=== PATIENT | male | born 1945 | race Caucasian/White ===

== ENCOUNTER 2019-08-12 07:20 | Outpatient (CLI) | payer MEDICARE, SELFPAY ==
--- NOTE | ~2019-08-12 | CT_ITS ---
EXAMINATION: CT abdomen pelvis wo/w con EXAM DATE: 08/12/2019 08:44 INDICATION: Microscopic hematuria. TECHNIQUE: Spiral CT of the abdomen and pelvis was performed without contrast. The patient was then injected with small bolus intravenous Omnipaque 350, followed by delay of approximately 10 minutes to allow collecting system to opacify. A post contrast scan abdomen and pelvis was performed during inj ection of remaining contrast. A total of 130 cc intravenous contrast was administered. The dose-aundrea th product (DLP) for this examination was 3090.54 mGy-cm. The exposure was tailored according to pat ient size (auto mA exposure control), and iterative reconstruction (ASIR) was used as additional dose reduction technique. There is no prior study for comparison. FINDINGS: There is no hydronephrosis or nephrolithiasis. There are multiple renal lesions bilaterall y consistent with cysts and hemorrhagic cysts, largest in the superior pole of the right kidney measu ring 11 cm. The kidneys enhance symmetrically. There are no suspicious renal lesions. The calyces and opacified portions of ureters are unremarkable, without filling defects or focal suspicious stric tures. The bladder is unremarkable. The prostate is unremarkable. The largest liver cyst is in the right liver dome, measures 1.8 cm. The spleen, pancreas, and adrena l glands are unremarkable. Gallbladder is unremarkable. No biliary obstruction. There is no retrop eritoneal or pelvic lymphadenopathy. There is mild to moderate scattered arteriosclerotic disease. The appendix is normal. There is small sliding gastroesophageal hiatal hernia. There is expected am ount of colonic stool. There is mild descending colonic colonic diverticulosis. There is no adjacent inflammatory change to suggest diverticulitis. No free intraperitoneal gas. The heart is normal i n size. There are no pericardial or pleural effusions. The lung bases are unremarkable. There are no osteoblastic or osteolytic lesions identified. IMPRESSION: 1. No suspicious genitourinary findings. 2. Liver, kidney cysts. 3. Colonic diverticulosis. Reviewed, dictated and finalized at location B. ET TECHNICIAN
[2019-08-12 08:16] LABS: Blood Urea Nitrogen 12 mg/dL (8-26); Estimated Glomerular Filt Rate > 60
== END 2019-08-12 07:21 | disposition home or self-care (01) ==
PROVIDERS: PCP Internal Medicine; Visit Provider Urology
DX: R31.29 Other microscopic hematuria (principal); K76.89 Other specified diseases of liver; N28.1 Cyst of kidney, acquired; K57.90 Diverticulosis of intestine, part unspecified, without perforation or abscess without bleeding
CPT/HCPCS: 74178; Q9967

== ENCOUNTER 2019-12-15 07:36 | Outpatient (CLI) | payer MEDICARE, SELFPAY ==
[2019-12-15 07:55] LABS: Appearance Urine Clear (Clear); Basophils Absolute Auto 0.02 K/mm3 (0.00-0.10); Basophils Percent Auto 0.3 % (0.0-1.0); Bilirubin Urine Negative (Negative); Color Urine Yellow (Yellow); Eosinophils Absolute Auto 0.28 K/mm3 (0.02-0.50); Eosinophils Percent Auto 4.3 % (1.0-6.0); Glucose Urine UA Negative (Negative); Hemoglobin 14.1 g/dL (12.4-15.3); Immature Granulocyte Absolute 0.03 K/mm3 (0.00-0.00); Immature Granulocyte Percent A 0.5 % (0.0-0.0); Ketones Urine Negative (Negative); Leukocyte Esterase Ur Negative (Negative); Lymphocytes Absolute Auto 1.35 K/mm3 (1.10-4.50); Lymphocytes Percent Auto 20.8 % (18.0-42.0); Mean Corpuscular HGB Conc 34.4 g/dL (32.0-36.0); Mean Corpuscular Hemoglobin 31.3 pg (27.0-31.0); Mean Corpuscular Volume 90.9 fL (78.0-102.0); Mean Platelet Volume 10.7 fl (8.7-11.0); Monocytes Absolute Auto 0.55 K/mm3 (0.10-0.90); Monocytes Percent Auto 8.5 % (2.0-11.0); Neutrophils Absolute Auto 4.3 K/mm3 (1.7-7.2); Neutrophils Percent Auto 65.6 % (50.0-70.0); Nitrate Urine Negative (Negative); Platelet Count Result 210 K/mm3 (150-420); Protein Urine Negative (Negative); Red Blood Count 4.51 M/mm3 (4.70-6.10); Red Cell Distribution Width 11.3 % (11.6-14.4); Specific Grav Ur 1.015 (1.010-1.020); Urobilinogen Urine 0.2 mg/dL (0.2-1.0); White Blood Count 6.5 K/mm3 (4.8-10.8)
[2019-12-15 08:00] LABS: Add Urine Microscopic? YES; Bacteria Urine None seen /hpf; Blood Urine Trace-Intact (Negative); RBC Urine 0-2 /hpf (0-2); WBC Urine 0-3 /hpf (0-3)
[2019-12-15 09:04] LABS: Alanine Aminotransferase 24 U/L (16-63); Albumin Level 3.7 g/dL (3.4-5.0); Alkaline Phosphatase 93 U/L (46-116); Anion Gap 11.3 mmol/L (7-16); Aspartate Amino Transferase 19 U/L (15-37); Bilirubin,Total 0.3 mg/dL (0.00-1.00); Blood Urea Nitrogen 20 mg/dL (7-18); Calcium 8.7 mg/dL (8.5-10.1); Carbon Dioxide 31 mmol/L (21-32); Chloride 99 mmol/L (98-108); Cholesterol 174 mg/dL (0-200); Creatine Kinase 155 U/L (39-308); Estimated Glomerular Filt Rate > 60; Ferritin 220 ng/mL (26-388); Glucose 100 mg/dL (70-99); HDL Direct 43 mg/dL (40-60); Iron 121 ug/dL (65-175); LDL Cholesterol Calculated 118 mg/dL (<130); Osmolality Calculated 286 mOsm/kg (285-295); Percent Iron Saturation 53 % (12-57); Potassium 4.3 mmol/L (3.5-5.1); Sodium 137 mmol/L (136-145); Total Protein 6.3 g/dL (6.4-8.2); Triglycerides 67 mg/dL (0-150)
== END 2019-12-15 07:37 | disposition home or self-care (01) ==
LOC: CHSLAB 07:38
PROVIDERS: PCP Internal Medicine; Visit Provider Internal Medicine
DX: E78.2 Mixed hyperlipidemia (principal); E83.110 Hereditary hemochromatosis; I10 Essential (primary) hypertension
CPT/HCPCS: 36415; 80053; 80061; 81001; 82550; 82728; 83540; 83550; 85025

== ENCOUNTER 2020-07-05 07:36 | Outpatient (CLI) | payer MEDICARE, SELFPAY ==
[2020-07-05 07:51] LABS: Basophils Absolute Auto 0.02 K/mm3 (0.00-0.10); Basophils Percent Auto 0.3 % (0.0-1.0); Eosinophils Absolute Auto 0.26 K/mm3 (0.02-0.50); Eosinophils Percent Auto 3.6 % (1.0-6.0); Hematocrit 38.6 % (37.0-46.0); Hemoglobin 13.5 g/dL (12.4-15.3); Immature Granulocyte Absolute 0.03 K/mm3 (0.00-0.00); Immature Granulocyte Percent A 0.4 % (0.0-0.0); Lymphocytes Percent Auto 22.2 % (18.0-42.0); Mean Corpuscular Hemoglobin 31.3 pg (27.0-31.0); Mean Corpuscular Volume 89.6 fL (78.0-102.0); Mean Platelet Volume 10.6 fl (8.7-11.0); Monocytes Percent Auto 8.3 % (2.0-11.0); Neutrophils Absolute Auto 4.7 K/mm3 (1.7-7.2); Neutrophils Percent Auto 65.2 % (50.0-70.0); Platelet Count Result 231 K/mm3 (150-420); Red Blood Count 4.31 M/mm3 (4.70-6.10); Red Cell Distribution Width 11.1 % (11.6-14.4); White Blood Count 7.2 K/mm3 (4.8-10.8)
[2020-07-05 07:54] LABS: Appearance Urine Clear (Clear); Bilirubin Urine Negative (Negative); Color Urine Yellow (Yellow); Glucose Urine UA Negative (Negative); Ketones Urine Negative (Negative); Leukocyte Esterase Ur Negative (Negative); Nitrate Urine Negative (Negative); Protein Urine Negative (Negative); Specific Grav Ur 1.025 (1.010-1.020); Urobilinogen Urine 0.2 mg/dL (0.2-1.0)
[2020-07-05 08:00] LABS: Add Urine Microscopic? YES; Bacteria Urine Trace /hpf; Blood Urine Trace-Intact (Negative); Mucus Urine Few /lpf; RBC Urine 0-2 /hpf (0-2); Squamous Epithelial Cell Urine Rare /hpf (Few); WBC Urine None seen /hpf (0-3)
[2020-07-05 08:03] LABS: Hemoglobin A1C 5.2 % (<5.7)
[2020-07-05 09:03] LABS: Alanine Aminotransferase 13 U/L (16-63); Albumin Level 3.8 g/dL (3.4-5.0); Alkaline Phosphatase 89 U/L (46-116); Anion Gap 3 mmol/L (8-16); Aspartate Amino Transferase 24 U/L (15-37); Bilirubin,Total 0.4 mg/dL (0.00-1.00); Blood Urea Nitrogen 24 mg/dL (7-18); Calcium 8.5 mg/dL (8.5-10.1); Carbon Dioxide 31 mmol/L (21-32); Chloride 100 mmol/L (98-108); Cholesterol 173 mg/dL (0-200); Creatine Kinase 135 U/L (39-308); Estimated Glomerular Filt Rate > 60; Ferritin 230 ng/mL (26-388); Glucose 101 mg/dL (70-99); HDL Direct 42 mg/dL (40-60); Iron 113 ug/dL (65-175); LDL Cholesterol Calculated 117 mg/dL (<130); Osmolality Calculated 282 mOsm/kg (285-295); Percent Iron Saturation 48 % (12-57); Potassium 4.6 mmol/L (3.5-5.1); Prostate Specific Antigen 1.7 ng/mL (< OR = 4.0); Sodium 134 mmol/L (136-145); Total Protein 6.5 g/dL (6.4-8.2); Triglycerides 69 mg/dL (0-150)
== END 2020-07-05 07:37 | disposition home or self-care (01) ==
LOC: CHSLAB 07:38
PROVIDERS: PCP Internal Medicine; Visit Provider Internal Medicine
DX: R73.01 Impaired fasting glucose (principal); I10 Essential (primary) hypertension; E83.110 Hereditary hemochromatosis; E78.2 Mixed hyperlipidemia; N40.0 Benign prostatic hyperplasia without lower urinary tract symptoms
CPT/HCPCS: 36415; 80053; 80061; 81001; 82550; 82728; 83036; 83540; 83550; 84153; 85025; G0103

== ENCOUNTER 2020-07-22 11:08 | Outpatient (CLI) | payer MEDICARE, SELFPAY ==
[2020-07-22 11:37] LABS: Anion Gap 6 mmol/L (8-16); Blood Urea Nitrogen 22 mg/dL (7-18); Calcium 8.7 mg/dL (8.5-10.1); Carbon Dioxide 34 mmol/L (21-32); Chloride 96 mmol/L (98-108); Estimated Glomerular Filt Rate > 60; Glucose 91 mg/dL (70-99); Osmolality Calculated 285 mOsm/kg (285-295); Sodium 136 mmol/L (136-145)
== END 2020-07-22 11:09 | disposition home or self-care (01) ==
LOC: CHSLAB 11:09
PROVIDERS: PCP Internal Medicine; Visit Provider Internal Medicine
DX: I10 Essential (primary) hypertension (principal)
CPT/HCPCS: 36415; 80048

== ENCOUNTER 2020-12-21 10:53 | Outpatient (CLI) | payer MEDICARE, SELFPAY ==
[2020-12-21 11:14] LABS: Basophils Absolute Auto 0.02 K/mm3 (0.00-0.10); Basophils Percent Auto 0.4 % (0.0-1.0); Eosinophils Absolute Auto 0.06 K/mm3 (0.02-0.50); Eosinophils Percent Auto 1.1 % (1.0-6.0); Hematocrit 37.5 % (37.0-46.0); Hemoglobin 12.8 g/dL (12.4-15.3); Immature Granulocyte Absolute 0.02 K/mm3 (0.00-0.00); Immature Granulocyte Percent A 0.4 % (0.0-0.0); Lymphocytes Absolute Auto 0.78 K/mm3 (1.10-4.50); Lymphocytes Percent Auto 14.7 % (18.0-42.0); Mean Corpuscular HGB Conc 34.1 g/dL (32.0-36.0); Mean Corpuscular Hemoglobin 30.9 pg (27.0-31.0); Mean Corpuscular Volume 90.6 fL (78.0-102.0); Mean Platelet Volume 10.3 fl (8.7-11.0); Monocytes Absolute Auto 0.69 K/mm3 (0.10-0.90); Neutrophils Absolute Auto 3.8 K/mm3 (1.7-7.2); Neutrophils Percent Auto 70.4 % (50.0-70.0); Platelet Count Result 182 K/mm3 (150-420); Red Blood Count 4.14 M/mm3 (4.70-6.10); Red Cell Distribution Width 11.3 % (11.6-14.4); White Blood Count 5.3 K/mm3 (4.8-10.8)
[2020-12-21 11:26] LABS: Add Urine Microscopic? NO; Appearance Urine Clear (Clear); Bilirubin Urine Negative (Negative); Blood Urine Negative (Negative); Color Urine Light Yellow (Yellow); Glucose Urine UA Negative (Negative); Ketones Urine Negative (Negative); Leukocyte Esterase Ur Negative (Negative); Nitrate Urine Negative (Negative); Protein Urine Negative (Negative); Specific Grav Ur 1.015 (1.010-1.020); Urobilinogen Urine 0.2 mg/dL (0.2-1.0)
[2020-12-21 11:43] LABS: Creatinine Urine 84.92 mg/dL (40-278); MALB Creatinine Ratio 65.2 mg/g (0-30); Microalbumin Urine Random 55.4 mg/L
[2020-12-21 11:47] LABS: Hemoglobin A1C 5.2 % (<5.7)
[2020-12-21 12:10] LABS: Alanine Aminotransferase 11 U/L (16-63); Albumin Level 3.6 g/dL (3.4-5.0); Alkaline Phosphatase 105 U/L (46-116); Anion Gap 10 mmol/L (8-16); Aspartate Amino Transferase 21 U/L (15-37); Bilirubin,Total 0.3 mg/dL (0.00-1.00); Blood Urea Nitrogen 11 mg/dL (7-18); Calcium 8.1 mg/dL (8.5-10.1); Carbon Dioxide 29 mmol/L (21-32); Chloride 97 mmol/L (98-108); Cholesterol 153 mg/dL (0-200); Creatine Kinase 316 U/L (39-308); Estimated Glomerular Filt Rate > 60; Glucose 104 mg/dL (70-99); HDL Direct 40 mg/dL (40-60); LDL Cholesterol Calculated 99 mg/dL (<130); Osmolality Calculated 281 mOsm/kg (285-295); Potassium 4.3 mmol/L (3.5-5.1); Sodium 136 mmol/L (136-145); Triglycerides 71 mg/dL (0-150)
== END 2020-12-21 10:54 | disposition home or self-care (01) ==
PROVIDERS: PCP Internal Medicine; Visit Provider Internal Medicine
DX: E78.5 Hyperlipidemia, unspecified (principal); I10 Essential (primary) hypertension; E83.110 Hereditary hemochromatosis; R73.01 Impaired fasting glucose
CPT/HCPCS: 36415; 80053; 80061; 81003; 82043; 82550; 83036; 85025

== ENCOUNTER 2020-12-22 11:00 | Outpatient (CLI) | payer MEDICARE, SELFPAY ==
--- NOTE | ~2020-12-22 | XR_ITS ---
XR chest 2V DATE: 12/22/2020 11:33 INDICATION: Cough, wheezing TECHNIQUE: PA and lateral views COMPARISON: None FINDINGS: Heart size is normal. Is aortic calcification, ectasia and mild unfolding. No hilar or medi astinal enlargement. No pulmonary infiltrate or consolidation, pleural effusion or pulmonary vascular congestion or pneumo thorax is detected. Degenerative spurring of the thoracic spine. Osteopenia. IMPRESSION: No active cardiac pulmonary disease Aortic atherosclerosis Reviewed, dictated and finalized at location A.
[2020-12-22 11:28] LABS: Basophils Absolute Auto 0.01 K/mm3 (0.00-0.10); Basophils Percent Auto 0.2 % (0.0-1.0); Eosinophils Absolute Auto 0.04 K/mm3 (0.02-0.50); Eosinophils Percent Auto 0.7 % (1.0-6.0); Hematocrit 39.8 % (37.0-46.0); Hemoglobin 13.7 g/dL (12.4-15.3); Immature Granulocyte Absolute 0.03 K/mm3 (0.00-0.00); Immature Granulocyte Percent A 0.5 % (0.0-0.0); Lymphocytes Absolute Auto 1.19 K/mm3 (1.10-4.50); Mean Corpuscular HGB Conc 34.4 g/dL (32.0-36.0); Mean Corpuscular Hemoglobin 30.5 pg (27.0-31.0); Mean Corpuscular Volume 88.6 fL (78.0-102.0); Mean Platelet Volume 10.2 fl (8.7-11.0); Monocytes Percent Auto 11.8 % (2.0-11.0); Neutrophils Percent Auto 66.8 % (50.0-70.0); Platelet Count Result 193 K/mm3 (150-420); Red Blood Count 4.49 M/mm3 (4.70-6.10); Red Cell Distribution Width 11.3 % (11.6-14.4); White Blood Count 5.9 K/mm3 (4.8-10.8)
[2020-12-22 12:05] LABS: SARS-CoV-2 Ag Negative (Negative)
[2020-12-22 12:17] LABS: SARS-CoV-2 RNA PCR Negative (Negative)
== END 2020-12-22 11:01 | disposition home or self-care (01) ==
LOC: CHSLAB 11:07
PROVIDERS: PCP Internal Medicine; Visit Provider Internal Medicine
DX: R73.01 Impaired fasting glucose (principal); E78.2 Mixed hyperlipidemia; I10 Essential (primary) hypertension; Z20.822 Contact with and (suspected) exposure to COVID-19
CPT/HCPCS: 36415; 71046; 85025; 87426; C9803; U0003; U0005

== ENCOUNTER 2021-07-08 09:37 | Outpatient (CLI) | payer MEDICARE, SELFPAY ==
[2021-07-08 09:50] LABS: Basophils Absolute Auto 0.02 K/mm3 (0.00-0.10); Basophils Percent Auto 0.3 % (0.0-1.0); Eosinophils Absolute Auto 0.14 K/mm3 (0.02-0.50); Eosinophils Percent Auto 2.1 % (1.0-6.0); Hematocrit 39.7 % (37.0-46.0); Hemoglobin 13.4 g/dL (12.4-15.3); Immature Granulocyte Absolute 0.02 K/mm3 (0.00-0.00); Immature Granulocyte Percent A 0.3 % (0.0-0.0); Lymphocytes Absolute Auto 1.29 K/mm3 (1.10-4.50); Lymphocytes Percent Auto 19.5 % (18.0-42.0); Mean Corpuscular HGB Conc 33.8 g/dL (32.0-36.0); Mean Corpuscular Hemoglobin 31.2 pg (27.0-31.0); Mean Corpuscular Volume 92.5 fL (78.0-102.0); Mean Platelet Volume 10.4 fl (8.7-11.0); Monocytes Absolute Auto 0.57 K/mm3 (0.10-0.90); Monocytes Percent Auto 8.6 % (2.0-11.0); Neutrophils Absolute Auto 4.6 K/mm3 (1.7-7.2); Neutrophils Percent Auto 69.2 % (50.0-70.0); Platelet Count Result 217 K/mm3 (150-420); Red Blood Count 4.29 M/mm3 (4.70-6.10); Red Cell Distribution Width 11.5 % (11.6-14.4); White Blood Count 6.6 K/mm3 (4.8-10.8)
[2021-07-08 10:09] LABS: Add Urine Microscopic? NO; Appearance Urine Clear (Clear); Bilirubin Urine Negative (Negative); Blood Urine Negative (Negative); Color Urine Yellow (Yellow); Glucose Urine UA Negative (Negative); Ketones Urine Negative (Negative); Leukocyte Esterase Ur Negative (Negative); Nitrate Urine Negative (Negative); Protein Urine Negative (Negative); Specific Grav Ur 1.015 (1.010-1.020); Urobilinogen Urine 0.2 mg/dL (0.2-1.0)
[2021-07-08 10:13] LABS: Hemoglobin A1C 5.3 % (<5.7)
[2021-07-08 11:27] LABS: Alanine Aminotransferase 24 U/L (16-63); Albumin Level 3.7 g/dL (3.4-5.0); Alkaline Phosphatase 89 U/L (46-116); Anion Gap 8 mmol/L (8-16); Aspartate Amino Transferase 13 U/L (15-37); Bilirubin,Total 0.4 mg/dL (0.00-1.00); Blood Urea Nitrogen 19 mg/dL (7-18); Calcium 8.6 mg/dL (8.5-10.1); Carbon Dioxide 29 mmol/L (21-32); Chloride 101 mmol/L (98-108); Cholesterol 180 mg/dL (0-200); Estimated Glomerular Filt Rate > 60; Ferritin 159 ng/mL (26-388); Glucose 97 mg/dL (70-99); HDL Direct 49 mg/dL (40-60); Iron 112 ug/dL (65-175); LDL Cholesterol Calculated 118 mg/dL (<130); Osmolality Calculated 288 mOsm/kg (285-295); Percent Iron Saturation 48 % (12-57); Potassium 4.1 mmol/L (3.5-5.1); Sodium 138 mmol/L (136-145); Total Protein 6.2 g/dL (6.4-8.2); Triglycerides 65 mg/dL (0-150)
== END 2021-07-08 09:38 | disposition home or self-care (01) ==
LOC: CHSLAB 09:39
PROVIDERS: PCP Internal Medicine; Visit Provider Internal Medicine
DX: E78.2 Mixed hyperlipidemia (principal); I10 Essential (primary) hypertension; R73.01 Impaired fasting glucose; E83.110 Hereditary hemochromatosis
CPT/HCPCS: 36415; 80053; 80061; 81003; 82728; 83036; 83540; 83550; 85025

== ENCOUNTER 2022-01-31 07:03 | Outpatient (CLI) | payer MEDICARE, SELFPAY ==
[2022-01-31 07:17] LABS: Add Urine Microscopic? NO; Appearance Urine Clear (Clear); Basophils Absolute Auto 0.02 K/mm3 (0.00-0.10); Basophils Percent Auto 0.3 % (0.0-1.0); Bilirubin Urine Negative (Negative); Blood Urine Negative (Negative); Color Urine Light Yellow (Yellow); Eosinophils Absolute Auto 0.18 K/mm3 (0.02-0.50); Eosinophils Percent Auto 2.8 % (1.0-6.0); Glucose Urine UA Negative (Negative); Hemoglobin 13.6 g/dL (12.4-15.3); Immature Granulocyte Absolute 0.03 K/mm3 (0.00-0.00); Immature Granulocyte Percent A 0.5 % (0.0-0.0); Ketones Urine Negative (Negative); Leukocyte Esterase Ur Negative (Negative); Lymphocytes Absolute Auto 1.37 K/mm3 (1.10-4.50); Lymphocytes Percent Auto 21.1 % (18.0-42.0); Mean Corpuscular Hemoglobin 31.2 pg (27.0-31.0); Mean Corpuscular Volume 91.7 fL (78.0-102.0); Mean Platelet Volume 10.3 fl (8.7-11.0); Monocytes Absolute Auto 0.53 K/mm3 (0.10-0.90); Monocytes Percent Auto 8.2 % (2.0-11.0); Neutrophils Absolute Auto 4.4 K/mm3 (1.7-7.2); Neutrophils Percent Auto 67.1 % (50.0-70.0); Nitrate Urine Negative (Negative); Platelet Count Result 217 K/mm3 (150-420); Protein Urine Negative (Negative); Red Blood Count 4.36 M/mm3 (4.70-6.10); Red Cell Distribution Width 11.4 % (11.6-14.4); Urobilinogen Urine 0.2 mg/dL (0.2-1.0); White Blood Count 6.5 K/mm3 (4.8-10.8); pH Urine 7.5 (5.0-8.0)
[2022-01-31 07:27] LABS: Hemoglobin A1C 5.4 % (<5.7)
[2022-01-31 07:44] LABS: Alanine Aminotransferase 21 U/L (16-63); Albumin Level 3.6 g/dL (3.4-5.0); Alkaline Phosphatase 88 U/L (46-116); Anion Gap 8 mmol/L (8-16); Aspartate Amino Transferase 16 U/L (15-37); Bilirubin,Total 0.3 mg/dL (0.00-1.00); Blood Urea Nitrogen 21 mg/dL (7-18); Calcium 8.7 mg/dL (8.5-10.1); Carbon Dioxide 27 mmol/L (21-32); Chloride 100 mmol/L (98-108); Cholesterol 167 mg/dL (0-200); Creatine Kinase 120 U/L (39-308); Estimated Glomerular Filt Rate > 60; Ferritin 164 ng/mL (26-388); Glucose 104 mg/dL (70-99); HDL Direct 44 mg/dL (40-60); Iron 109 ug/dL (65-175); LDL Cholesterol Calculated 107 mg/dL (<130); Osmolality Calculated 283 mOsm/kg (285-295); Potassium 4.2 mmol/L (3.5-5.1); Prostate Specific Antigen 2.5 ng/mL (< OR = 4.0); Sodium 135 mmol/L (136-145); Total Protein 6.3 g/dL (6.4-8.2); Triglycerides 82 mg/dL (0-150)
== END 2022-01-31 07:04 | disposition home or self-care (01) ==
LOC: CHSLAB 07:06
PROVIDERS: PCP Internal Medicine; Visit Provider Internal Medicine
DX: E83.110 Hereditary hemochromatosis (principal); E78.2 Mixed hyperlipidemia; R73.01 Impaired fasting glucose; Z12.5 Encounter for screening for malignant neoplasm of prostate; Z00.00 Encounter for general adult medical examination without abnormal findings
CPT/HCPCS: 36415; 80053; 80061; 81003; 82550; 82728; 83036; 83540; 84153; 85025; G0103

== ENCOUNTER 2022-02-06 12:29 | Outpatient (CLI) | payer MEDICARE, SELFPAY ==
--- NOTE | 2022-02-06 12:30 | ECHO_ITS ---
Patient Info Name: Maykel Milner Age: 76 years : 1945 Gender: Male Ht: 71 in Wt: 289 lbs BSA: 2.62 m2 HR: 71 bpm BP: 194 / 74 mmHg Technical Quality: Good Exam Date: 02/06/2022 12:44 PM Exam Location: [facility] [place] Patient Status: Outpatient Admit Date: 02/06/2022 Staff Ordering Physician: Marilyn Stephenson MD Prisoner Classification Interviewer: Mart Burks RDCS, RT Attending Provider: Marilyn Stephenson MD Referring Physician: Sachin SHEPPARD; Exam Type: CA echo doppler color flow Study Info Indications R01.1 - Cardiac murmur, unspecified Complete two-dimensional, color flow and Doppler transthoracic echocardiogram is performed. Strain analysis performed. Summary 1. Complete two-dimensional, color flow and Doppler transthoracic echocardiogram is performed. 2. Left ventricular chamber dimension is normal. 3. Left ventricular systolic function is normal, estimated at 60-65%. 4. There is moderately increased left ventricular wall thickness. 5. The left ventricular diastolic function is grade I diastolic dysfunction. 6. E/e' 9 is minimally elevated. 7. Global longitudinal strain is normal at -18.0%. 8. Left atrial chamber dimension is mildly enlarged. 9. There is mild aortic valve sclerosis. Left Ventricle E/e' 9 is minimally elevated. Global longitudinal strain is normal at -18.0%. Left ventricular chamber dimension is normal. Left ventricular systolic function is normal, estimated at 60-65%. There is moderately increased left ventricular wall thickness. The left ventricular diastolic function is grade I diastolic dysfunction. Right Ventricle Right ventricular systolic function is normal and with normal TAPSE 2.4 cm. Right ventricular chamber dimension is normal. Left Atria Left atrial chamber dimension is mildly enlarged. Right Atria Right atrial chamber dimension is normal. Aortic Valve The aortic valve is trileaflet. There is mild aortic valve sclerosis. There is no aortic valve stenosis. There is no aortic valve regurgitation. Pulmonic Valve There is no pulmonic regurgitation. Mitral Valve There is no mitral valve stenosis. There is no mitral valve regurgitation. Tricuspid Valve There is no tricuspid valve regurgitation. Pericardium/Pleural There is no pericardial effusion. Inferior Vena Cava Normal inferior vena cava with >50% collapse upon inspiration consistent with normal right atrial pressure, 5 mmHg. Aorta The aortic root size at the sinus of Valsalva is normal. Left Ventricular Outflow Tract Name Value Normal LVOT 2D LVOT Diameter 2.0 cm LVOT Doppler LVOT Peak Velocity 155 cm/s LVOT Peak Gradient 10 mmHg LVOT Mean Gradient 6 mmHg LVOT VTI 38 cm LVOT VTI/AV VTI Ratio 0.9 LVOT Stroke Volume 116 ml Mitral Valve Name Value Normal
== END 2022-02-06 12:30 | disposition home or self-care (01) ==
LOC: CHSIMG 12:31
PROVIDERS: PCP Internal Medicine; Visit Provider Internal Medicine
DX: R01.1 Cardiac murmur, unspecified (principal)
CPT/HCPCS: 93306

== ENCOUNTER 2022-07-31 07:17 | Outpatient (CLI) | payer MEDICARE, OTHER, SELFPAY ==
[2022-07-31 07:34] LABS: Basophils Absolute Auto 0.02 K/mm3 (0.00-0.10); Basophils Percent Auto 0.4 % (0.0-1.0); Eosinophils Absolute Auto 0.16 K/mm3 (0.02-0.50); Eosinophils Percent Auto 2.8 % (1.0-6.0); Hematocrit 40.3 % (37.0-46.0); Hemoglobin 13.5 g/dL (12.4-15.3); Immature Granulocyte Absolute 0.02 K/mm3 (0.00-0.00); Immature Granulocyte Percent A 0.4 % (0.0-0.0); Lymphocytes Percent Auto 22.8 % (18.0-42.0); Mean Corpuscular HGB Conc 33.5 g/dL (32.0-36.0); Mean Corpuscular Hemoglobin 30.5 pg (27.0-31.0); Mean Corpuscular Volume 91.2 fL (78.0-102.0); Mean Platelet Volume 9.7 fl (8.7-11.0); Monocytes Absolute Auto 0.49 K/mm3 (0.10-0.90); Monocytes Percent Auto 8.6 % (2.0-11.0); Neutrophils Absolute Auto 3.7 K/mm3 (1.7-7.2); Platelet Count Result 211 K/mm3 (150-420); Red Blood Count 4.42 M/mm3 (4.70-6.10); Red Cell Distribution Width 11.5 % (11.6-14.4); White Blood Count 5.7 K/mm3 (4.8-10.8)
[2022-07-31 07:37] LABS: Add Urine Microscopic? NO; Appearance Urine Clear (Clear); Bilirubin Urine Negative (Negative); Blood Urine Negative (Negative); Color Urine Light Yellow (Yellow); Glucose Urine UA Negative (Negative); Ketones Urine Negative (Negative); Leukocyte Esterase Ur Negative (Negative); Nitrate Urine Negative (Negative); Protein Urine Negative (Negative); Specific Grav Ur 1.015 (1.010-1.020); Urobilinogen Urine 0.2 mg/dL (0.2-1.0)
[2022-07-31 07:55] LABS: Hemoglobin A1C 5.3 % (<5.7)
[2022-07-31 08:31] LABS: Alanine Aminotransferase 18 U/L (16-63); Albumin Level 3.7 g/dL (3.4-5.0); Alkaline Phosphatase 87 U/L (46-116); Anion Gap 5 mmol/L (8-16); Aspartate Amino Transferase 16 U/L (15-37); Bilirubin,Total 0.4 mg/dL (0.00-1.00); Blood Urea Nitrogen 23 mg/dL (7-18); Calcium 8.6 mg/dL (8.5-10.1); Carbon Dioxide 32 mmol/L (21-32); Chloride 99 mmol/L (98-108); Cholesterol 180 mg/dL (0-200); Estimated Glomerular Filt Rate > 60; Ferritin 162 ng/mL (26-388); Glucose 101 mg/dL (70-99); HDL Direct 50 mg/dL (40-60); Iron 114 ug/dL (65-175); LDL Cholesterol Calculated 119 mg/dL (<130); Osmolality Calculated 285 mOsm/kg (285-295); Potassium 4.2 mmol/L (3.5-5.1); Sodium 136 mmol/L (136-145); Total Protein 6.2 g/dL (6.4-8.2); Triglycerides 54 mg/dL (0-150)
== END 2022-07-31 07:18 | disposition home or self-care (01) ==
PROVIDERS: PCP Internal Medicine; Visit Provider Internal Medicine
DX: I10 Essential (primary) hypertension (principal); R31.21 Asymptomatic microscopic hematuria; E83.110 Hereditary hemochromatosis; E78.2 Mixed hyperlipidemia; R73.01 Impaired fasting glucose
CPT/HCPCS: 36415; 80053; 80061; 81003; 82728; 83036; 83540; 85025

== ENCOUNTER 2023-02-01 08:00 | Outpatient (CLI) | payer MEDICARE, OTHER, SELFPAY ==
[2023-02-01 08:19] LABS: Appearance Urine Clear (Clear); Bilirubin Urine Negative (Negative); Blood Urine Negative (Negative); Color Urine Light Yellow (Yellow); Glucose Urine UA Negative (Negative); Ketones Urine Negative (Negative); Leukocyte Esterase Ur Negative (Negative); Nitrate Urine Negative (Negative); Protein Urine Negative (Negative); Urobilinogen Urine 0.2 mg/dL (0.2-1.0)
[2023-02-01 08:22] LABS: Add Urine Microscopic? NO
[2023-02-01 09:09] LABS: Alanine Aminotransferase 11 U/L (16-63); Albumin Level 3.7 g/dL (3.4-5.0); Alkaline Phosphatase 93 U/L (46-116); Anion Gap 6 mmol/L (8-16); Aspartate Amino Transferase 13 U/L (15-37); Bilirubin,Total 0.5 mg/dL (0.00-1.00); Blood Urea Nitrogen 18 mg/dL (7-18); Calcium 9.1 mg/dL (8.5-10.1); Carbon Dioxide 31 mmol/L (21-32); Chloride 98 mmol/L (98-108); Cholesterol 169 mg/dL (0-200); Creatine Kinase 97 U/L (39-308); Estimated Glomerular Filt Rate > 60; Glucose 100 mg/dL (70-99); HDL Direct 48 mg/dL (40-60); LDL Cholesterol Calculated 105 mg/dL (<130); Osmolality Calculated 281 mOsm/kg (285-295); Potassium 4.4 mmol/L (3.5-5.1); Prostate Specific Antigen 2.4 ng/mL (< OR = 4.0); Sodium 135 mmol/L (136-145); Total Protein 6.2 g/dL (6.4-8.2); Triglycerides 78 mg/dL (0-150)
== END 2023-02-01 08:01 | disposition home or self-care (01) ==
LOC: CHSLAB 08:03
PROVIDERS: PCP Internal Medicine; Visit Provider Internal Medicine
DX: R73.01 Impaired fasting glucose (principal); E78.2 Mixed hyperlipidemia; I10 Essential (primary) hypertension; Z12.5 Encounter for screening for malignant neoplasm of prostate
CPT/HCPCS: 36415; 80053; 80061; 81003; 82550; 83036; 84153; G0103

== ENCOUNTER 2023-03-12 08:00 | Outpatient (CLI) | payer MEDICARE, OTHER, SELFPAY ==
--- NOTE | 2023-03-12 08:15 | ECHO_ITS ---
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 Summary 1. Complete two-dimensional, color flow and Doppler transthoracic echocardiogram is performed. 2. Left ventricular chamber dimension is normal. 3. Left ventricular systolic function is normal, estimated at 60-65%. 4. There is moderate concentric increased left ventricular wall thickness. 5. The left ventricular diastolic function is grade I diastolic dysfunction. 6. E/e' 13 is mildly elevated. 7. Left atrial chamber dimension is mildly enlarged. 8. There is trace tricuspid valve regurgitation. 9. No pulmonary hypertension, estimated pulmonary arterial systolic pressure is 29 mmHg. 10. There is trace pulmonic regurgitation. Left Ventricle E/e' 13 is mildly elevated. Left ventricular chamber dimension is normal. Left ventricular systolic function is normal, estimated at 60-65%. There is moderate concentric increased left ventricular wall thickness. The left ventricular diastolic function is grade I diastolic dysfunction. Right Ventricle Right ventricular systolic function is normal and with normal TAPSE 4.0 cm. Right ventricular chamber dimension is normal. Left Atria Left atrial chamber dimension is mildly enlarged. Right Atria Right atrial chamber dimension is normal. Aortic Valve The aortic valve is trileaflet. There is no aortic valve stenosis. There is no aortic valve regurgitation. Pulmonic Valve There is trace pulmonic regurgitation. Mitral Valve There is no mitral valve stenosis. There is no mitral valve regurgitation. Tricuspid Valve There is trace tricuspid valve regurgitation. No pulmonary hypertension, estimated pulmonary arterial systolic pressure is 29 mmHg. Pericardium/Pleural There is no pericardial effusion. Inferior Vena Cava Normal inferior vena cava with >50% collapse upon inspiration consistent with normal right atrial pressure, 5 mmHg. Aorta The aortic root size at the sinus of Valsalva is normal. Left Ventricular Outflow Tract Name Value Normal LVOT 2D LVOT Diameter 1.8 cm LVOT Doppler LVOT Peak Velocity 195 cm/s LVOT Peak Gradient 15 mmHg LVOT Mean Gradient 8 mmHg LVOT VTI 50 cm LVOT VTI/AV VTI Ratio 1.0 LVOT Stroke Volume 131 ml Pulmonic Valve Name Value Normal RVOT Doppler
== END 2023-03-12 08:01 | disposition home or self-care (01) ==
LOC: CHSIMG 08:00
PROVIDERS: PCP Internal Medicine; Visit Provider Internal Medicine
DX: I50.1 Left ventricular failure, unspecified (principal); I10 Essential (primary) hypertension
CPT/HCPCS: 93306

== ENCOUNTER 2023-04-04 07:14 | Outpatient (CLI) | payer MEDICARE, OTHER, SELFPAY ==
--- NOTE | ~2023-04-04 | CT_ITS ---
EXAMINATION: CTA abd aorta runoff DATE: 04/04/2023 08:27 INDICATION: Peripheral arterial occlusive disease TECHNIQUE: Computed tomographic angiography (CTA) of the abdominal, pelvis, and both lower extremitie s was performed with 150 mL Omnipaque 350 intravenous contrast. Automated exposure control and iterat dominik reconstruction technique were employed. The dose-length product was mGy-cm. COMPARISON: None. FINDINGS: ABDOMEN AND PELVIS: Lung bases are clear. Heart size is normal. No pericardial or pleural effusion. Small sliding-type hi atal hernia. Multiple hepatic cysts measuring up to 2 cm. Multiple larger bilateral renal cysts measu ring up to 13 cm on the right and 5 cm on the left. Spleen, pancreas and gallbladder are normal. Unch anged mild nodular thickening of the limbs of the left and right adrenal glands likely representing s mall adenomas. Mild diverticulosis along the descending and proximal sigmoid colon without adjacent i nflammatory stranding to suggest diverticulitis. No bowel obstruction. Bladder is normal. Prostatomeg zulema. No free intraperitoneal gas or fluid. No pathologically enlarged abdominal or pelvic lymphadenop athy. Bilateral vasectomy clips at the base of the scrotum. Moderate to severe lumbar spondylosis. 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 There is fusion several of the joints at the left hindfoot. ABDOMINAL AORTA AND ITS BRANCHES: Scattered atherosclerotic plaque throughout the normal caliber abdominal aorta. Moderate 50-70% steno sis at the origin of the celiac axis. No significant stenosis at the superior mesenteric artery. At l east moderate and more likely severe, >70% stenosis at the origin of the left renal artery. Mild, <50 % stenosis at the right renal artery. PELVIC VASCULATURE: Scattered atherosclerotic plaque without significant stenosis at the bilateral common and internal il iac arteries. No evident atherosclerotic plaque along the bilateral external iliac arteries. RIGHT LOWER EXTREMITY: Small amount of scattered atherosclerotic plaque without hemodynamically significant stenosis at the right common femoral, superficial femoral and popliteal artery. No evident plaque along the deep femo ral artery. There is three-vessel runoff to the ankle. LEFT LOWER EXTREMITY: Small amount scattered atherosclerotic plaque without hemodynamically significant stenosis at the lef t common femoral, superficial femoral and popliteal arteries. No evident plaque along the deep femora l artery. There is three-vessel runoff below the ankle. Asymmetric moderate to severe fatty muscular atrophy involving the left biceps femoris muscle and the musculature of the left calf and foot IMPRESSION: 1. Scattered atherosclerotic plaque extending from the abdominal aorta through the bilateral poplite al arteries without hemodynamically significant stenosis and with bilateral three-vessel runoff below the ankle. 2. Moderate stenosis at the origin of the celiac axis and at least moderate or more likely severe rudy nosis at the origin of the left renal artery. 3. Small sliding-type hiatal hernia. 4. Prostatomegaly. 5. Asymmetric moderate to severe fatty atrophy of the left biceps femoris in the muscles of the left calf and foot. Reviewed, dictated and finalized at location A. IMPRESSION: 1. Scattered atherosclerotic plaque extending from the abdominal aorta through the bilateral popliteal arteries without hemodynamically significant stenosis and with bilateral three-vessel runoff below the ankle. 2. Moderate stenosis at the origin of the celiac axis and at least moderate or more likely severe stenosis at the origin of the left renal artery. 3. Small sliding-type hiatal
[2023-04-04 07:39] LABS: Estimated Glomerular Filt Rate > 60
== END 2023-04-04 07:15 | disposition home or self-care (01) ==
LOC: CHSIMG 07:17
PROVIDERS: PCP Internal Medicine; Visit Provider Internal Medicine
DX: I73.9 Peripheral vascular disease, unspecified (principal); K44.9 Diaphragmatic hernia without obstruction or gangrene; N40.0 Benign prostatic hyperplasia without lower urinary tract symptoms; M62.562 Muscle wasting and atrophy, not elsewhere classified, left lower leg
CPT/HCPCS: 75635; Q9967

== ENCOUNTER 2023-04-30 08:08 | Outpatient (CLI) | payer MEDICARE, OTHER, SELFPAY ==
--- NOTE | 2023-04-30 08:20 | EST_ITS ---
Patient Info Name: Maykel Milner Age: 78 years : 1945 Gender: Male Ht: 69 in Wt: 283 lbs BSA: 2.56 m2 Technical Quality: Good Exam Date: 04/30/2023 10:27 AM Exam Location: [facility] Patient Status: Outpatient Admit Date: 04/30/2023 Staff Ordering Physician: Marilyn Stephenson MD Attending Provider: Marilyn Stephenson MD Exam Type: CA stress radha w NM Study Info A regadenoson stress test was performed. History/Risk Factors Hypertension: Yes Dyslipidemia: Yes Summary 1. 1. Negative lexiscan stress test for ischemic ST changes by ECG criteria. 2. 2. Baseline hypertension. 3. 3. Nuclear scan to follow and will be reported separately. Please correlate with it. Protocol: LEXISCAN Stress ECG Details Stage: REST Duration (min): 2 min : 24 sec HR (bpm): 60 SBP (mmHg): 157 DBP (mmHg): 62 Stage: REST Duration (min): 6 min : 49 sec HR (bpm): 63 SBP (mmHg): 157 DBP (mmHg): 62 Stage: STAGE 1 Duration (min): 0 min : 15 sec HR (bpm): 61 SBP (mmHg): 157 DBP (mmHg): 62 Stage: RECOVERY Duration (min): 0 min : 44 sec HR (bpm): 82 SBP (mmHg): 157 DBP (mmHg): 62 Stage: RECOVERY Duration (min): 1 min : 44 sec HR (bpm): 86 SBP (mmHg): 157 DBP (mmHg): 62 Stage: RECOVERY Duration (min): 2 min : 44 sec HR (bpm): 82 SBP (mmHg): 170 DBP (mmHg): 64 Stage: RECOVERY Duration (min): 3 min : 44 sec HR (bpm): 77 SBP (mmHg): 156 DBP (mmHg): 61 Stage: RECOVERY Duration (min): 4 min : 44 sec HR (bpm): 81 SBP (mmHg): 153 DBP (mmHg): 60 Stage: RECOVERY Duration (min): 5 min : 19 sec HR (bpm): 78 SBP (mmHg): 153 DBP (mmHg): 60 Rest HR: 63 bpm Peak HR: 87 bpm Rest Sys BP: 157 mmHg Peak Sys BP: 170 mmHg Max Pred HR: 141 bpm % Max Pred HR: 62 % Target HR: 120 bpm Max RPP: 14,790 bpm*mmHg BP Response: Normal blood pressure response Termination Reason: Completed Protocol Cardiac Symptoms: None Total Time: 0 min : 15 sec Rest Torres BP: 62 mmHg Peak Torres BP: 64 mmHg Total Dose: 0.4 mg Resting ECG Sinus bradycardia, RBBB. Stress ECG No abnormal ST/T wave changes. Arrhythmias No arrhythmias were observed during the examination. Report Signatures
--- NOTE | 2023-04-30 13:07 | WPDCARIOSTRE ---
Nuclear Stress Test INDICATIONS Indications: Abnormal ECG, hypertension PROCEDURE Procedure Performed: Myocardial Perf Spect-Multi Procedure: Patient underwent a lexiscan stress test and immediately was injected with 28.1 mCi of cardiolyte. Multiple tomographic images were obtained. These are of good quality. There is evidence of small size, mild anterior perfusion defect with stress imaging. A separate resting images were obtained after patient was injected with 9.6 mCi of cardiolyte. Multiple tomographic images were obtained. These are of good quality. There is evidence of small size, mild anterior perfusion defect with rest imaging. CONCLUSION Conclusion: 1. Myocardial perfusion imaging demonstrating fixed small size anterior perfusion defect suggestive of breast attenuation artifact. 2. No evidence of reversible ischemia. 3. Left ventriculogram demonstrates normal measured ejection fraction of 65% with no wall motion abnormalities. 4. TID score 1.03 is normal.
== END 2023-04-30 08:09 | disposition home or self-care (01) ==
LOC: CHSCARD 08:09
PROVIDERS: PCP Internal Medicine; Visit Provider Internal Medicine
DX: I10 Essential (primary) hypertension (principal); R94.31 Abnormal electrocardiogram [ECG] [EKG]
CPT/HCPCS: 78452; 93017; A9502; J2785

== ENCOUNTER 2023-07-20 07:48 | Outpatient (CLI) | payer MEDICARE, OTHER, SELFPAY ==
[2023-07-20 08:08] LABS: Appearance Urine Clear (Clear); Basophils Absolute Auto 0.02 K/mm3 (0.00-0.10); Basophils Percent Auto 0.3 % (0.0-1.0); Bilirubin Urine Negative (Negative); Blood Urine Negative (Negative); Color Urine Yellow (Yellow); Eosinophils Percent Auto 3.2 % (1.0-6.0); Glucose Urine UA Negative (Negative); Hematocrit 38.5 % (37.0-46.0); Immature Granulocyte Absolute 0.02 K/mm3 (0.00-0.00); Immature Granulocyte Percent A 0.3 % (0.0-0.0); Ketones Urine Negative (Negative); Leukocyte Esterase Ur Negative (Negative); Lymphocytes Absolute Auto 1.45 K/mm3 (1.10-4.50); Lymphocytes Percent Auto 23.1 % (18.0-42.0); Mean Corpuscular HGB Conc 33.8 g/dL (32.0-36.0); Mean Corpuscular Hemoglobin 30.1 pg (27.0-31.0); Mean Corpuscular Volume 89.1 fL (78.0-102.0); Mean Platelet Volume 10.3 fl (8.7-11.0); Monocytes Absolute Auto 0.54 K/mm3 (0.10-0.90); Monocytes Percent Auto 8.6 % (2.0-11.0); Neutrophils Absolute Auto 4.1 K/mm3 (1.7-7.2); Neutrophils Percent Auto 64.5 % (50.0-70.0); Nitrate Urine Negative (Negative); Platelet Count Result 236 K/mm3 (150-420); Protein Urine Negative (Negative); Red Blood Count 4.32 M/mm3 (4.70-6.10); Red Cell Distribution Width 11.6 % (11.6-14.4); Specific Grav Ur 1.015 (1.010-1.020); Urobilinogen Urine 0.2 mg/dL (0.2-1.0); White Blood Count 6.3 K/mm3 (4.8-10.8); pH Urine 7.5 (5.0-8.0)
[2023-07-20 08:35] LABS: Add Urine Microscopic? NO
[2023-07-20 09:06] LABS: Alanine Aminotransferase 18 U/L (16-63); Albumin Level 3.3 g/dL (3.4-5.0); Alkaline Phosphatase 75 U/L (46-116); Anion Gap 9 mmol/L (8-16); Aspartate Amino Transferase 13 U/L (15-37); Bilirubin,Total 0.4 mg/dL (0.00-1.00); Blood Urea Nitrogen 18 mg/dL (7-18); Calcium 8.5 mg/dL (8.5-10.1); Carbon Dioxide 26 mmol/L (21-32); Chloride 97 mmol/L (98-108); Cholesterol 156 mg/dL (0-200); Creatine Kinase 93 U/L (39-308); Estimated Glomerular Filt Rate > 60; Glucose 100 mg/dL (70-99); HDL Direct 53 mg/dL (40-60); Iron 127 ug/dL (65-175); LDL Cholesterol Calculated 91 mg/dL (<130); Osmolality Calculated 275 mOsm/kg (285-295); Sodium 132 mmol/L (136-145); Total Protein 5.8 g/dL (6.4-8.2); Triglycerides 61 mg/dL (0-150)
[2023-07-20 09:36] LABS: Ferritin 136 ng/mL (26-388)
== END 2023-07-20 07:49 | disposition home or self-care (01) ==
LOC: CHSLAB 07:51
PROVIDERS: PCP Internal Medicine; Visit Provider Internal Medicine
DX: I10 Essential (primary) hypertension (principal); R73.01 Impaired fasting glucose; E83.110 Hereditary hemochromatosis; E78.2 Mixed hyperlipidemia
CPT/HCPCS: 36415; 80053; 80061; 81003; 82550; 82728; 83036; 83540; 85025

== ENCOUNTER 2024-02-08 07:27 | Outpatient (CLI) | payer MEDICARE, SELFPAY ==
[2024-02-08 07:42] LABS: Add Urine Microscopic? NO; Appearance Urine Clear (Clear); Bilirubin Urine Negative (Negative); Blood Urine Negative (Negative); Color Urine Light Yellow (Yellow); Glucose Urine UA Negative (Negative); Ketones Urine Negative (Negative); Leukocyte Esterase Ur Negative (Negative); Mean Corpuscular HGB Conc 34.2 g/dL (32-36); Mean Corpuscular Hemoglobin 30.9 pg (27.0-31.0); Mean Corpuscular Volume 90.3 fL (78.0-102.0); Mean Platelet Volume 9.9 fl (8.7-11.0); Nitrate Urine Negative (Negative); Platelet Count Result 230 K/mm3 (150-420); Protein Urine Negative (Negative); Red Blood Count 4.21 M/mm3 (4.70-6.10); Red Cell Distribution Width 11.6 % (11.6-14.4); Specific Grav Ur 1.015 (1.010-1.020); Urobilinogen Urine 0.2 mg/dL (0.2-1.0); White Blood Count 6.9 K/mm3 (4.8-10.8)
[2024-02-08 07:59] LABS: Hemoglobin A1C 5.3 % (<5.7)
[2024-02-08 08:30] LABS: Alanine Aminotransferase 20 U/L (16-63); Albumin Level 3.6 g/dL (3.4-5.0); Alkaline Phosphatase 93 U/L (46-116); Anion Gap 4 mmol/L (4-12); Aspartate Amino Transferase 17 U/L (15-37); Bilirubin,Total 0.4 mg/dL (0.00-1.00); Blood Urea Nitrogen 18 mg/dL (7-18); Calcium 8.8 mg/dL (8.5-10.1); Carbon Dioxide 32 mmol/L (21-32); Chloride 99 mmol/L (98-108); Cholesterol 125 mg/dL (0-200); Creatine Kinase 156 U/L (39-308); Estimated Glomerular Filt Rate > 60; Ferritin 142 ng/mL (26-388); Glucose 101 mg/dL (70-99); HDL Direct 54 mg/dL (40-60); Iron 100 ug/dL (65-175); LDL Cholesterol Calculated 62 mg/dL (<130); Osmolality Calculated 281 mOsm/kg (285-295); Potassium 4.3 mmol/L (3.5-5.1); Sodium 135 mmol/L (136-145); Total Protein 5.8 g/dL (6.4-8.2); Triglycerides 45 mg/dL (0-150)
== END 2024-02-08 07:28 | disposition home or self-care (01) ==
LOC: CHSLAB 07:29
PROVIDERS: PCP Internal Medicine; Visit Provider Internal Medicine
DX: I10 Essential (primary) hypertension (principal); R73.01 Impaired fasting glucose; E78.2 Mixed hyperlipidemia; E83.110 Hereditary hemochromatosis; Z12.5 Encounter for screening for malignant neoplasm of prostate
CPT/HCPCS: 36415; 80053; 80061; 81003; 82550; 82728; 83036; 83540; 84153; 85027; G0103

== ENCOUNTER 2024-08-29 07:28 | Outpatient (CLI) | payer MEDICARE, SELFPAY ==
--- OUTSIDE RECORDS SUMMARY | 2024-08-29 07:40 | XMS_ITS | Clinical Summary ---
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 01/27/2022 Active hydroCHLOROthia zide (HYDRODIURIL) 25 MG tablet Take 1 tablet (25 mg total) by mouth every morning. Active atorvastatin (LIPITOR) 10 MG tablet Take 1 tablet (10 mg total) by mouth nightly at bedtime. 07/24/2023 Active metoprolol succinate ER (TOPROL-XL) 25 MG 24 hr tablet Take 1 tablet (25 mg total) by mouth daily. 08/09/2023 Active NIFEdipine XL (PROCARDIA XL) 60 MG 24 hr tablet Take 1 tablet (60 mg total) by mouth daily. 90 tablet 3 11/22/2023 Active Active Problems No known active problems Encounters Date Type Department Care Team Description 08/27/2024 Orders Only [facility] [address] [place] [address] MD 07/18/2024 Telephone [facility] [address] [place] [address] Priya Matta MD Reschedule from Last 3 Months Family History Medical History Relation Comments Colon Cancer Father Prostate Cancer Father Valve Disease Mother Relation Status Comments Brother Alive Father Maternal Grandfather Maternal Grandmother Alive Mother Paternal Grandfather Paternal Grandmother Sister Social History Tobacco Use Types Packs/Day Years Used Date Smoking Tobacco: Former Cigarettes Q uit: 1985 Smokeless Tobacco: Never Tobacco Cessation:Counseling Given: Not Answered Alcohol Use Standard Drinks/Week Comments Not Currently 0 (1 standard drink = 0.6 oz pur e alcohol) Sex and Gender Information Value Date Recorded Sex Assigned at Not on file Legal Sex Male 7:33 PM CDT Gender Identity Not on file Sexual Orientation Not on file Last Filed Vital Signs Vital Sign Reading Time Taken Comments Blood Pressure 136/72 09/05/2023 11:07 AM CDT Pulse 66 09/05/2023 11:07 AM CDT Temperature - - Respiratory Rate 18 09/05/2023 11:0 7 AM CDT Oxygen Saturation 100% 09/05/2023 11: 07 AM CDT Inhaled Oxygen Concentration - - Weight 128.9 kg (284 lb 1.6 oz) 024 11:07 AM CDT Height 180.3 cm (5' 11 ) 09/05/2023 11: 07 AM CDT Body Mass Index 39.62 09/05/2023 11:07 AM CDT Plan of Treatment Upcoming Encounters Date Type Department Care Team ([facility] Contact Info) Description 09/02/2024 2:45 PM CDT Office Visit [facility] [place] [address] MD [address] [facility] [address] [place] [address] Health Maintenance Due Date Last Done Comments Zoster Vaccines (1 of 2) 1994 Annual Medicare Wellness Visit 2009 Pneumococcal Vaccine: 65+ Years (1 of 1 - PCV) 2009 DTaP, Tdap and Td Vaccines ( 1 - Tdap) 09/14/2011 09/13/2011 RSV Immunization or 60+ Years (1 - 1-dose 75+ series) 2019 COVID-19 Vaccine (3 2023-2 5 season) 2024 10/18/2020, 09/20/2020 Influenza Adult (#1) 2024 Meningococcal B Vaccine Aged Out No l onger eligible based on patient's age to complete this topic Meningococcal Vaccine Aged Out No pippa judy eligible based on patient's age to complete this topic RSV Immunizations Under 20 Months Aged Out No longer eligible b ased on patient's age to complete this topic Insurance MEDICARE Business Entertainment Address: ATTN CLAIMS [address] [place] [address] [place] Care Teams Pin Drafting Machine Operator Relationship Specialty Start Date End Date Marilyn Stephenson MD [address] [place] [address] PCP - General INTERNAL MEDICINE 02/17/[address] MD [address] [facility] [address] [place] [address] Physician INTERVENTIONAL CARDIOLOGY 08/22/24
[2024-08-29 08:11] LABS: Hematocrit 39.9 % (37.0-46.0); Hemoglobin 12.9 g/dL (12.4-15.3); Mean Corpuscular HGB Conc 32.3 g/dL (32-36); Mean Corpuscular Hemoglobin 29.6 pg (27.0-31.0); Mean Corpuscular Volume 91.5 fL (78.0-102.0); Mean Platelet Volume 10.8 fl (8.7-11.0); Platelet Count Result 235 K/mm3 (150-420); Red Blood Count 4.36 M/mm3 (4.70-6.10); Red Cell Distribution Width 11.5 % (11.6-14.4); White Blood Count 5.7 K/mm3 (4.8-10.8)
[2024-08-29 08:19] LABS: Add Urine Microscopic? NO; Appearance Urine Clear (Clear); Bilirubin Urine Negative (Negative); Blood Urine Negative (Negative); Color Urine Light Yellow (Yellow); Glucose Urine UA Negative (Negative); Ketones Urine Negative (Negative); Leukocyte Esterase Ur Negative (Negative); Nitrate Urine Negative (Negative); Protein Urine Negative (Negative); Urobilinogen Urine 0.2 mg/dL (0.2-1.0); pH Urine 6.5 (5.0-8.0)
[2024-08-29 08:31] LABS: Alanine Aminotransferase 25 U/L (16-63); Albumin Level 3.6 g/dL (3.4-5.0); Alkaline Phosphatase 107 U/L (46-116); Anion Gap 11 mmol/L (4-12); Aspartate Amino Transferase 16 U/L (15-37); Bilirubin,Total 0.4 mg/dL (0.00-1.00); Blood Urea Nitrogen 20 mg/dL (7-18); Calcium 8.7 mg/dL (8.5-10.1); Carbon Dioxide 26 mmol/L (21-32); Chloride 105 mmol/L (98-108); Cholesterol 121 mg/dL (0-200); Creatine Kinase 124 U/L (39-308); Estimated Glomerular Filt Rate > 60; Glucose 102 mg/dL (70-99); HDL Direct 52 mg/dL (40-60); LDL Cholesterol Calculated 59 mg/dL (<130); Osmolality Calculated 296 mOsm/kg (285-295); Potassium 4.4 mmol/L (3.5-5.1); Sodium 142 mmol/L (136-145); Total Protein 6.1 g/dL (6.4-8.2); Triglycerides 50 mg/dL (0-150)
== END 2024-08-29 07:29 | disposition home or self-care (01) ==
LOC: CHSLAB 07:32
PROVIDERS: PCP Internal Medicine; Visit Provider Internal Medicine
DX: I10 Essential (primary) hypertension (principal); R73.01 Impaired fasting glucose; E78.2 Mixed hyperlipidemia; E83.40 Disorders of magnesium metabolism, unspecified
CPT/HCPCS: 36415; 80053; 80061; 81003; 82550; 83036; 85027

== ENCOUNTER 2024-09-30 09:31 | Outpatient (CLI) | payer MEDICARE, SELFPAY ==
--- NOTE | ~2024-09-30 | CT_ITS ---
EXAMINATION: CTA abd aorta runoff DATE: 09/30/2024 10:46 INDICATION: Iliac artery aneurysm TECHNIQUE: Computed tomographic angiography (CTA) of the abdominal, pelvis, and both lower extremitie s was performed with 150 mL Omnipaque 350 intravenous contrast. Automated exposure control and iterat dominik reconstruction technique were employed. The dose-length product was 1749.55 mGy-cm. COMPARISON: None. FINDINGS: ABDOMINAL AORTA AND ITS BRANCHES: Scattered atherosclerotic plaque throughout the normal caliber abdominal aorta. Unchanged moderate 50 -70% stenosis at the origin of the celiac axis. No significant stenosis at the superior and inferior mesenteric arteries. Severe>70% stenosis at the origin of the left renal artery. Mild, <50% stenosis at the right renal artery. PELVIC VASCULATURE: Scattered atherosclerotic plaque without significant stenosis at the bilateral common and internal il iac arteries. No evident atherosclerotic plaque along the bilateral external iliac arteries. The larg er right common iliac artery measures up to 1.6 cm in maximal diameter which remains within normal li mits. No aneurysms identified. RIGHT LOWER EXTREMITY: Small amount of scattered atherosclerotic plaque without hemodynamically significant stenosis at the right common femoral, superficial femoral and popliteal artery. No evident plaque along the deep femo ral artery. There is three-vessel runoff to the ankle. LEFT LOWER EXTREMITY: Small amount scattered atherosclerotic plaque without hemodynamically significant stenosis at the lef t common femoral, superficial femoral and popliteal arteries. No evident plaque along the deep femora l artery. There is three-vessel runoff below the ankle. Unchanged asymmetric moderate to severe fatty muscular atrophy involving the left biceps femoris muscle and the musculature of the left calf and f oot. ADDITIONAL FINDINGS: Calcified nodule at the lingula. Heart size normal. No pericardial or pleural effusion. Multiple low- attenuation hepatic cysts measuring up to 1.6 similar. There are also multiple bilateral renal cysts the largest on the right measuring 11.6 cm. Spleen is normal. 2.0 cm simple appearing cystic lesion a long the anterior margin of the body the pancreas. Unchanged mild nodular thickening of the limbs of the left and right adrenal glands which given the interval stability most likely represent small maurilio omas. Bowels including the appendix are normal. Bladder is normal. Mild prostatomegaly. Prostatomegal y measuring 4.7 x 4.2 cm. Severe lumbar and lower thoracic spondylosis. IMPRESSION: 1. Scattered atherosclerotic plaque with severe stenosis at the left renal artery and moderate steno sis at the celiac axis. No aneurysms identified. 2. Small sliding-type hiatal hernia. 3. 2.0 cm simple appearing cystic lesion at the body the pancreas. Recommend six-month follow-up pre and post contrast MRI. 4. Prostatomegaly. Reviewed, dictated and finalized at location A. IMPRESSION: 1. Scattered atherosclerotic plaque with severe stenosis at the left renal art lamar and moderate stenosis at the celiac axis. No aneurysms identified. 2. Small sliding-type hiatal hernia. 3. 2.0 cm simple appearing cystic lesion at the body the pancreas. Recommend si x-month follow-up pre and post contrast MRI. 4. Prostatomegaly.
[2024-09-30 10:07] LABS: Estimated Glomerular Filt Rate > 60
--- OUTSIDE RECORDS SUMMARY | 2024-09-30 10:12 | XMS_ITS | Clinical Summary ---
Author Organization [facility] Address [address] [place] [address] Care Team Providers Care De Ionizer Operator Name Role Phone Marilyn Stephenson MD Primary Care Provider Papi Way MD Unavailable [phone] Allergies Active Allergy Reactions Criticality Noted Date [...] 90 tablet 3 11/22/2023 Active Active Problems Problem Noted Date Diagnosed Date Class 3 severe obesity due t o excess calories without serious comorbidity with body mass index (BMI) of 40.0 to 44.9 in adult 09/02/2024 SARAH (obstructive sleep apnea) 09/02/2024 Mixed hyperlipidemia 09/02/2024 Primary hypertension 09/02/2024 Encounters Date Type Department Care Team Description 09/10/2024 Telephone [facility] [address] [place] [address] MD Schedule Test 09/09/2024 Abstract [facility] [address] [place] [address] Abstract, Doc Pccl 09/04/2024 Telephone [facility] [address] [place] [address] MD Other 09/02/2024 2:45 PM CDT [facility] [address] [facility] [address] MD 09/02/2024 2:28 PM CDT - 09/02/2024 11:59 PM CDT Hospital Encounter [facility] [address] [place] [address] MD Discharge Disposition: Home or Self Care (Routine Discharge) 09/02/2024 Travel 08/27/2024 Orders Only [facility] [address] [place] [address] MD 07/18/2024 Telephone [facility] [address] [place] [address] Priya Matta MD Reschedule from Last 3 [...] Information Value Date Recorded Sex Assigned at Male 09/02/2024 2:25 PM CDT Legal Sex Male 7:33 PM CDT Gender Identity Not on file Sexual Orientation Not on file Last Filed Vital Signs Vital Sign Reading Time Taken Comments Blood Pressure 158/82 09/02/2024 3:30 PM CDT ReC heck Ole Pulse 64 09/02/2024 3:28 PM CDT Temperature - - Respiratory Rate 16 09/02/2024 3:28 PM CDT Oxygen Saturation 99% 09/02/2024 3:28 PM CDT Inhaled Oxygen Concentration - - Weight 130.2 kg (287 lb) 09/02/2024 3:28 PM CDT Height 180.3 cm (5' 11 ) 09/02/2024 3:28 PM CDT Body Mass Index 40.03 09/02/2024 3:28 PM CDT Plan of Treatment Health Maintenance Due Date Last Done Comments Zoster Vaccines (1 of 2) 1994 Annual Medicare Wellness Visit 2009 Pneumococcal Vaccine: 50+ Years (1 of 1 - PCV) 2009 DTaP, Tdap and Td Vaccines ( 1 - Tdap) 09/14/2011 09/13/2011 RSV Immunization or 60+ Years (1 - 1-dose 75+ series) 2019 COVID-19 Vaccine (3 - 2023-2 5 season) 2024 10/18/2020, 09/20/2020 Meningococcal B Vaccine Aged Out No l onger eligible based on patient's age to complete this topic Meningococcal Vaccine Aged Out No pippa judy eligible based on patient's age to complete this topic RSV Immunizations Under 20 Months Aged Out No longer eligible b ased on patient's age to complete this topic Procedures Procedure Name Priority Date/Time Associated Diagnosis Comments ECG 12-LEAD Routine 09/02/2024 1:49 PM CDT Essential hypertension Hypercholesterolem ia COMPREHENSIVE METABOLIC PANEL Routine 08/29/2024 LIPID PANEL Routine 08/29/2024 CBC, MANUAL DIFF Routine 08/29/2024 HEMOGLOBIN, GLYCOSYLATED Routine 08/29/2024 from Last 3 Months Results * ECG 12 lead (HOSPITAL PERFORMED ONLY) (09/02/2024 1:49 PM CDT) 09/02/2024 1:49 PM CDT Narrative [facility] - 09/02/2024 5:45 PM CDT [address] [place] [address] Test Date: 2024-09-02 Pat Name: MAYKEL MILNER Department: 3 Room: Gender: Male [employer] Supervisor: : 1945 Requested By: PAPI WAY Order Number: [id number] Reading CAROLYN Way Measurements Intervals [place] Rate: 60 P: 43 CO: 171 QRS: 79 QRSD: 143 T: 70 QT: 438 QTc: 439 Interpretive Statements SINUS RHYTHM INTRAVENTRICULAR CONDUCTION DELAY [130+ ms QRS DURATION] Procedure Note Papi Way MD - 09/02/[address] [place] [address] Test Date: 2024-09-02 Pat Name: MAYKEL MILNER Department: 3 Room: Gender: Male [employer] Supervisor: : 1945 Requested By: PAPI WAY Order Number: [id number] [address] Measurements Intervals [place] Rate: 60 P: 43 CO: 171 QRS: 79 QRSD: 143 T: 70 QT: 438 QTc: 439 Interpretive Statements SINUS RHYTHM INTRAVENTRICULAR CONDUCTION DELAY [130+ ms QRS DURATION] us Papi Way MD ECG ORDERABLES Final Result [facility] * HEMOGLOBIN, GLYCOSYLATED (08/29/2024) HGB A1C 5.0 % Narrative Resulting Agency Comment [facility] Marilyn Stephenson MD LABORATORY Final Result * COMPREHENSIVE METABOLIC PANEL (08/29/2024) SODIUM S/P/B 142 GLUCOSE 102 mg/dL AST 16 BUN 20 CREATININE S/P/B 1.06 0.7 - 1.3 CALCIUM S/P/B 8.7 POTASSIUM S/P/B 4.4 CHLORIDE S/P/B 105 ALT 25 GFR ESTIMATE >60 Narrative Resulting Agency Comment [facility] Marilyn Stephenson MD LABORATORY Final Result * LIPID PANEL (08/29/2024) CHOLESTEROL 121 TRIGLYCERIDES 50 HDL 52 LDL (CALCULATED) 59 Narrative Resulting Agency Comment [facility] Marilyn Stephenson MD LABORATORY Final Result * CBC, MANUAL DIFF (08/29/2024) [facility] WBC 5.7 HGB 12.9 HCT 39.9 PLT 235 Narrative Resulting Agency Comment [facility] Marilyn Stephenson MD LABORATORY Final Result from Last 3 Months Insurance MEDICARE [place] Care Teams De Ionizer Operator Relationship Specialty Start Date End Date Marilyn Stephenson MD [address] [place] [id number] PCP - General INTERNAL MEDICINE 02/17/[address] MD [address] [facility] [address] [address] Physician INTERVENTIONAL CARDIOLOGY 08/22/24
== END 2024-09-30 09:32 | disposition home or self-care (01) ==
LOC: CHSIMG 09:36
PROVIDERS: PCP Internal Medicine
DX: I72.3 Aneurysm of iliac artery (principal); I70.1 Atherosclerosis of renal artery; I77.1 Stricture of artery; K44.9 Diaphragmatic hernia without obstruction or gangrene; K86.89 Other specified diseases of pancreas; N40.0 Benign prostatic hyperplasia without lower urinary tract symptoms
CPT/HCPCS: 75635; Q9967

== ENCOUNTER 2024-11-04 13:37 | Outpatient (CLI) | payer MEDICARE, SELFPAY ==
--- NOTE | 2024-11-04 13:44 | ECHO_ITS ---
Patient Info Name: Maykel Milner Age: 79 years : 1945 Gender: Male Ht: 73 in Wt: 280 lbs BSA: 2.60 m2 HR: 78 bpm BP: 188 / 80 mmHg Heart Rhythm: Sinus Rhythm Technical Quality: Good Exam Date: 11/04/2024 2:28 PM Patient Status: O Admit Date: 11/04/2024 Exam Type: CA echo doppler color flow Complete two-dimensional, color flow and Doppler transthoracic echocardiogram is performed. Shotblast Equipment Operator: Nya Carrington Summary 1. Complete two-dimensional, color flow and Doppler transthoracic echocardiogram is performed. 2. Left ventricular chamber dimension is normal. 3. Left ventricular systolic function is normal, estimated at 65-70. 4. There is moderate concentric increased left ventricular wall thickness. 5. The left ventricular diastolic function is grade I diastolic dysfunction. 6. E/e' 10 is mildly elevated. 7. Left atrial chamber dimension is moderately enlarged. 8. Right atrial chamber dimension is moderately enlarged. 9. There is mild aortic valve sclerosis. 10. The mitral valve has a mildly calcified annulus. 11. There is trace mitral valve regurgitation. 12. There is trace tricuspid valve regurgitation. 13. No pulmonary hypertension, estimated pulmonary arterial systolic pressure is 38 mmHg. 14. The aortic root size at the sinus of Valsalva is mildly dilated at 4.3 cm. 15. The prox ascending aorta size is moderately dilated at 4.5 cm. Left Ventricle E/e' 10 is mildly elevated. Left ventricular chamber dimension is normal. Left ventricular systolic function is normal, estimated at 65-70. There is moderate concentric increased left ventricular wall thickness. The left ventricular diastolic function is grade I diastolic dysfunction. Right Ventricle Right ventricular chamber dimension is normal. Right ventricular systolic function is normal and with normal TAPSE 2.9 cm. Left Atria Left atrial chamber dimension is moderately enlarged. Right Atria Right atrial chamber dimension is moderately enlarged. Aortic Valve The aortic valve is trileaflet. There is mild aortic valve sclerosis. There is no aortic valve stenosis. There is no aortic valve regurgitation. Pulmonic Valve There is no pulmonic regurgitation. Mitral Valve The mitral valve has a mildly calcified annulus. There is no mitral valve stenosis. There is trace mitral valve regurgitation. Tricuspid Valve There is trace tricuspid valve regurgitation. No pulmonary hypertension, estimated pulmonary arterial systolic pressure is 38 mmHg. Pericardium/Pleural There is no pericardial effusion. Inferior Vena Cava Normal inferior vena cava with >50% collapse upon inspiration consistent with normal right atrial pressure, 5 mmHg. Aorta The aortic root size at the sinus of Valsalva is mildly dilated at 4.3 cm. The prox ascending aorta size is moderately dilated at 4.5 cm. Left Ventricular Outflow Tract Name Value Normal LVOT 2D LVOT Diameter 2.1 cm LVOT Doppler LVOT Peak Velocity 130 cm/s LVOT Peak Gradient 7 mmHg LVOT Mean Gradient 4 mmHg LVOT VTI 36 cm LVOT VTI/AV VTI Ratio 0.9 LVOT Stroke Volume 123 ml LVOT CO 6.7 l/min LVOT CI 2.6 l/min/m2 Pulmonic Valve Name Value Normal RVOT Doppler RVOT Peak Velocity 112 cm/s RVOT Peak Gradient 5 mmHg PV Doppler PV Peak Velocity 128 cm/s PV Peak Gradient 7 mmHg Mitral Valve Name Value Normal MV Diastolic Function MV E Peak Velocity 95 cm/s MV A Peak Velocity 118 cm/s MV E/A 0.8 MV Decel Time (PW) 346 ms MV Annular TDI MV E/e' (Septal) 15.4 MV E/e' (Lateral) 8.5 MV E/e' (Average) 12.0 Tricuspid Valve Name Value Normal TV Regurgitation Doppler TR Peak Velocity 286 cm/s TR Peak Gradient 33 mmHg Estimated PAP/RSVP RA Pressure 5 mmHg <=5 PA Systolic Pressure 38 mmHg <36 RV Systolic Pressure 38 mmHg <36 TV Annular TDI TV Lateral Dana s' Velocity 11.3 cm/s >=9.5 Aortic Valve Name Value Normal AV Doppler AV Peak Velocity 169 cm/s AV Peak Gradient 11 mmHg AV Mean Gradient 6 mmHg AV VTI 43 cm AV Area (Cont Eq VTI) 2.9 cm2 >=3.0 AV Area (Cont Eq Tae) 2.6 cm2 AV DI (Tae) 0.77 AV Regurgitation 2D LVOT Area 3.4 cm2 Ventricles Name Value Normal LV Dimensions 2D/MM IVS Diastolic Thickness (2D) 1.6 cm 0.6-1.0 LVID Diastole (2D) 4.6 cm 4.2-5.8 LVIW Diastolic Thickness (2D) 1.2 cm 0.6-1.0 LVID Systole (2D) 2.8 cm 2.5-4.0 LVOT Diameter 2.1 cm LV Mass (2D Cubed) 260.46 g 88.00-224.00 LV Mass Index (2D Cubed) 100 g/m2 49-115 Relative Wall Thickness (2D) 0.54 <=0.42 LV Fractional Shortening/Ejection Fraction 2D/MM LV Fractional Shortening (2D) 38 % 25-43 LV EF (2D Teichholz) 69 % LV Diastolic Volume (4C MOD) 222 ml LV EF (4C MOD) 75 % LV Diastolic Volume (2C MOD) 267 ml LV EF (2C MOD) 80 % LV Diastolic Volume (BP MOD) 255 ml 62-150 LV Diastolic Volume Index (BP MOD) 98 ml/m2 34-74 LV Systolic Volume (BP MOD) 58 ml 21-61 LV Systolic Volume Index (BP MOD) 22 ml/m2 11-31 LV EF (BP MOD) 77 % 52-72 LV Diastolic Length (4C) 9.2 cm LV Systolic Length (4C) 6.4 cm LV Stroke Volume (4C MOD) 167 ml Atria Name Value Normal LA Dimensions LA Volume (4C A-L) 96 ml LA Volume (BP A-L) 103 ml RA Dimensions RA Systolic Major [place] Length (4C) 6.0 cm 2.1-2.7 RA Area (4C) 25.8 cm2 <=18.0 Report Signatures
--- OUTSIDE RECORDS SUMMARY | 2024-11-04 13:44 | XMS_ITS | Clinical Summary ---
Author Organization [facility] Address [address] [place] [address] Care Team Providers Care Professor Of Forest Planning Name Role Phone Marilyn Stephenson MD Primary Care Provider [phone] Papi De Leon MD Unavailable [phone] Allergies Active Allergy Reactions Criticality Noted Date [...] Encounters Date Type Department Care Team Description 10/29/2024 Travel 10/14/2024 Telephone [facility] [address] [place] [address] Papi De Leon MD Blood Pressure 10/06/2024 Telephone [facility] [address] [place] [address] Papi De Leon MD Results 09/30/2024 Scan [facility] [address] [place] [address] Scanned, Doc Pccl 09/18/2024 Scan [facility] [address] [place] [address] Scanned, Documents 09/10/2024 Telephone [facility] [address] [place] [address] Papi De Leon MD Schedule Test 09/09/2024 Abstract [facility] [address] [place] [address] Abstract, Doc Pccl 09/04/2024 Telephone [facility] [address] [place] [address] Papi De Leon MD Other 09/02/2024 2:45 PM CDT Office Visit [facility] [address] [place] [address] Papi De Leon MD Peripheral Vascular Disease 09/02/2024 2:28 PM CDT - 09/02/2024 11:59 PM CDT Hospital Encounter [facility] [address] [place] [address] [place] [address] Papi De Leon MD Discharge Disposition: Home or Self Care (Routine Discharge) 09/02/2024 Travel 08/27/2024 Orders Only [facility] [address] [place] [address] Papi De Leon MD from Last 3 Months Family History Medical [...] CDT Inhaled Oxygen Concentration - - Weight 127 kg (280 lb) 10/29/2024 1:52 PM CDT Height 182.9 cm (6') 10/29/2024 1:52 PM CDT Body Mass Index 37.97 10/29/2024 1:52 PM CDT Plan of Treatment Upcoming Encounters Date Type Department Care Team (Late st Contact Info) Description 11/05/2024 11:57 AM CDT [facility] [place] [address] Keri Bender MD [address] [place] [address] 11/05/2024 11:57 AM CDT Anesthesia [place] [address] Юлия Lewis CRNA [address] [place] [address] 11/05/2024 11:57 AM CDT - 11/05/2024 12:25 PM CDT [facility] [place] [address] [place] [address] Keri Bender MD [address] [place] [address] extraction cataract LEFT eye with lens implant Scheduled Procedures Name Priority Associated Diagnoses Date/Ti me CATARACT REMOVAL WITH IOL IMPLANT h25.9 11/05/2024 11:57 AM CDT Health Maintenance Due Date Last Done Comments Pneumococcal Vaccine: 50+ Years (1 of 1 - PCV) 1994 Zoster Vaccines (1 of 2) 1994 Annual Medicare Wellness Visit 2009 DTaP, Tdap and Td Vaccines ( [...] on patient's age to complete this topic Goals Goal Patient Goal Type Associated Problems Recent Progress Patient-Stated? 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 Procedure Name Priority Date/Time Associated Diagnosis Comments CTA AORTO ILIOFEM RUNOFF Routine 09/30/2024 Iliac aneurysm ECG 12-LEAD Routine 09/02/2024 1:49 PM CDT Essential hypertension Hypercholesterolem ia COMPREHENSIVE METABOLIC PANEL Routine 08/29/2024 LIPID PANEL Routine 08/29/2024 CBC, MANUAL DIFF Routine 08/29/2024 HEMOGLOBIN, GLYCOSYLATED Routine 08/29/2024 from Last 3 Months Results * CTA AORTO ILIOFEM RUNOFF (09/30/2024) Anatomical Region Laterality Modality Abdomen, Pelvis, Extremity Compu irene Tomography us Papi De Leon MD CT Edited Resul t - Final * ECG 12 lead (HOSPITAL PERFORMED ONLY) (09/02/2024 1:49 PM CDT) 09/02/2024 1:49 PM CDT Narrative [facility] RAD - 09/02/2024 5:45 PM CDT [address] [place] [address] Test Date: 2024-09-02 Pat Name: BEBA RM Department: 3 Room: Gender: Male Junior [employer] Analyst: : 1945 Requested By: PAPI DE LEON Order Number: [id number] Reading : Papi De Leon Measurements Intervals [place] Rate: 60 P: 43 UT: 171 QRS: 79 QRSD: 143 T: 70 QT: 438 QTc: 439 Interpretive Statements SINUS RHYTHM INTRAVENTRICULAR CONDUCTION DELAY [130+ ms QRS DURATION] Procedure Note Papi De Leon MD - 09/02/[address] [place] [address] Test Date: 2024-09-02 Pat Name: BEBA MILNER Department: 3 Room: Gender: Male Junior Qa Analyst: : 1945 Requested By: PAPI DE LEON Order Number: [id number] Reading : Papi De Leon Measurements Intervals [place] Rate: 60 P: 43 UT: 171 QRS: 79 QRSD: 143 T: 70 QT: 438 QTc: 439 Interpretive Statements SINUS RHYTHM INTRAVENTRICULAR CONDUCTION DELAY [130+ ms QRS DURATION] us Papi De Leon MD ECG ORDERABLES Final Result [facility] * HEMOGLOBIN, GLYCOSYLATED (08/29/2024) HGB A1C 5.0 % Narrative Resulting Agency Comment [facility] Marilyn Stephenson MD LABORATORY Final Result * COMPREHENSIVE METABOLIC PANEL (08/29/2024) SODIUM S/P/B 142 GLUCOSE 102 mg/dL AST 16 BUN 20 CREATININE S/P/B 1.06 0.7 - 1.3 CALCIUM S/P/B 8.7 POTASSIUM S/P/B 4.4 CHLORIDE S/P/B 105 ALT 25 GFR ESTIMATE >60 Narrative Resulting Agency Comment [facility] Marilyn Stephenson MD LABORATORY Final Result * LIPID PANEL (08/29/2024) CHOLESTEROL 121 TRIGLYCERIDES 50 HDL 52 LDL (CALCULATED) 59 Narrative Resulting Agency Comment [facility] Marilyn Stephenson MD LABORATORY Final Result * CBC, MANUAL DIFF (08/29/2024) Pathologist [facility] WBC 5.7 HGB 12.9 HCT 39.9 PLT 235 Narrative Resulting Agency Comment [facility] Marilyn Stephenson MD LABORATORY Final Result from Last 3 Months Additional Health Concerns Active Problems Noted Date Diagnosed Date Autogenerated Problem 10/27/2024 Insurance MEDICARE [place] Care Teams Professor Of Forest Planning Relationship Specialty Start Date End Date Marilyn Stephenson MD [address] [place] [address] PCP - General INTERNAL MEDICINE 02/17/22 Papi De Leon MD [address] [facility] [address] [place] [address] Physician INTERVENTIONAL CARDIOLOGY 08/22/24
== END 2024-11-04 13:38 | disposition home or self-care (01) ==
PROVIDERS: PCP Internal Medicine
DX: I10 Essential (primary) hypertension (principal); I35.8 Other nonrheumatic aortic valve disorders; R93.1 Abnormal findings on diagnostic imaging of heart and coronary circulation
CPT/HCPCS: 93306

== ENCOUNTER 2024-12-09 07:31 | Outpatient (CLI) | payer MEDICARE, SELFPAY | END 2024-12-09 07:32 | disposition home or self-care (01) | LOC: CHSIMG 07:34 | PROVIDERS: PCP Internal Medicine | DX: I70.1 Atherosclerosis of renal artery (principal) | CPT/HCPCS: 99199 ==

== ENCOUNTER 2025-02-20 07:07 | Outpatient (CLI) | payer MEDICARE, SELFPAY ==
--- NOTE | ~2025-02-20 | US_ITS ---
EXAMINATION: US retroperitoneal duplex ltd DATE: 02/27/2025 16:15 CDT INDICATION: Hypertension TECHNIQUE: Multiple grayscale, color Doppler, and pulsed Doppler images of the kidneys and renal arteries were obtained. COMPARISON: Ultrasound dated 07/01/2019 FINDINGS: There are multiple bilateral renal cysts. The aorta peak systolic velocity is 105 cm/s. The right renal artery peak systolic velocity is 119 cm/s in the proximal segment, 106 cm/s in the mid segment, 86 cm/s in the distal segment. The left renal artery peak systolic velocity is 170 cm/s in the proximal segment, 86 cm/s in the mid segment, 29 cm/s in the distal segment. The renal artery/aorta systolic ratios are within normal limits. Notes: renal artery stenosis is >=180-200 cm/s or >3.5:1 ratio of renal artery velocity to aorta. This correlates with >50-60% stenosis. IMPRESSION: 1. No Doppler evidence of renal artery stenosis. Reviewed, dictated and finalized at location O.
== END 2025-02-20 07:08 | disposition home or self-care (01) ==
PROVIDERS: PCP Internal Medicine
DX: I70.1 Atherosclerosis of renal artery (principal)
CPT/HCPCS: 93976

== ENCOUNTER 2025-03-02 07:16 | Outpatient (CLI) | payer MEDICARE, SELFPAY ==
[2025-03-02 07:32] LABS: Hematocrit 39.0 % (37.0-46.0); Hemoglobin 12.9 g/dL (12.4-15.3); Mean Corpuscular HGB Conc 33.1 g/dL (32-36); Mean Corpuscular Hemoglobin 29.9 pg (27.0-31.0); Mean Corpuscular Volume 90.5 fL (78.0-102.0); Platelet Count Result 236 K/mm3 (150-420); Red Blood Count 4.31 M/mm3 (4.70-6.10); White Blood Count 6.8 K/mm3 (4.8-10.8)
[2025-03-02 07:34] LABS: Add Urine Microscopic? NO; Appearance Urine Clear (Clear); Glucose Urine UA Negative (Negative); Leukocyte Esterase Ur Negative (Negative); Nitrate Urine Negative (Negative); Specific Grav Ur 1.010 (1.010-1.020)
[2025-03-02 08:10] LABS: Hemoglobin A1C 5.3 % (<5.7)
[2025-03-02 09:38] LABS: Alanine Aminotransferase 18 U/L (6-50); Albumin Level 4.2 g/dL (3.5-5.1); Alkaline Phosphatase 87 U/L (38-126); Anion Gap 11 mmol/L (4-12); Aspartate Amino Transferase 25 U/L (17-59); Bilirubin,Total 0.5 mg/dL (0.2-1.3); Blood Urea Nitrogen 32 mg/dL (9-20); Calcium 9.4 mg/dL (8.4-10.2); Carbon Dioxide 27 mmol/L (22-30); Chloride 99 mmol/L (98-107); Cholesterol 130 mg/dL (0-200); Creatine Kinase 110 U/L (55-170); Estimated Glomerular Filt Rate 54; Glucose 105 mg/dL (65-110); HDL Direct 48 mg/dL; Iron 89 ug/dL (49-181); Osmolality Calculated 290 mOsm/kg (285-295); Potassium 4.7 mmol/L (3.4-5.0); Sodium 137 mmol/L (137-145); Total Protein 6.4 g/dL (6.3-8.2); Triglycerides 54 mg/dL (<150)
[2025-03-02 10:05] LABS: Prostate Specific Antigen 2.9 ng/mL (< OR = 4.0)
[2025-03-02 10:09] LABS: Ferritin 63.10 ng/mL (11.1-264)
== END 2025-03-02 07:17 | disposition home or self-care (01) ==
PROVIDERS: PCP Internal Medicine; Visit Provider Internal Medicine
DX: E83.110 Hereditary hemochromatosis (principal); I10 Essential (primary) hypertension; E78.2 Mixed hyperlipidemia; R73.01 Impaired fasting glucose; Z12.5 Encounter for screening for malignant neoplasm of prostate
CPT/HCPCS: 36415; 80053; 80061; 81003; 82550; 82728; 83036; 83540; 84153; 85027; G0103

== ENCOUNTER 2025-04-11 07:28 | Outpatient (CLI) | payer MEDICARE, SELFPAY ==
--- NOTE | ~2025-04-11 | MR_ITS ---
EXAMINATION: MR MRCP wo/w con/w 3D wo ind DATE: 04/11/2025 09:23 INDICATION: Pancreatic cyst TECHNIQUE: Magnetic resonance imaging (MRI) of the abdomen was performed without and with 20 mL Multihance intravenous contrast. Sequences included coronal T2- weighted SS-FSE, coronal T2-weighted FS SS-FSE, coronal T2-weighted FS FIESTA, axial T2-weighted FS FIESTA, axial T2-weighted FIESTA, sagittal T2-weighted SS- FSE, axial T1-weighted dual-echo FSPGR, axial T2-weighted SS-FSE, axial T1- weighted LAVA, axial T2-weighted STIR FSE. Thick-slab T2-weighted FRFSE-XL images were obtained for magnetic resonance cholangiopancreatography (MRCP). Rotating maximum intensity projection 3-D reconstructions of the volumetric data were created by the technologist. Postcontrast sequences included a time course of axial T1-weighted LAVA. COMPARISON: CT dated 09/30/2024 FINDINGS: ABDOMEN MRI: Heart size is normal. No pericardial or pleural effusion. There are multiple T2 hyperintense nonenhancing hepatic and bilateral renal cysts. The largest renal cyst measures 12.6 cm at the right kidney, 4.4 cm at the left kidney and 1.7 cm the left hepatic lobe. Gallbladder, spleen and bilateral adrenal glands are normal. No significant change in a single 1.9 cm T2 hyperintense nonenhancing cyst at the body of the pancreas. Visualized portions of bowels are unremarkable. No pathologically enlarged abdominal lymphadenopathy. Mild to moderate thoracic and lumbar spondylosis. ABDOMEN MRCP: No intra-axial hepatic biliary ductal dilation. The common bile duct measures up to 4 mm in maximal diameter with no intraluminal filling defects to suggest choledocholithiasis. Main pancreatic duct is normal in caliber and there are a few mildly prominent pancreatic ductal side branches at the head and body the pancreas which could represent sequela of chronic pancreatitis. IMPRESSION: 1. No interval change in a 1.9 cm cystic lesion in the body the pancreas. There are few mildly prominent pancreatic ductal side branches which suggests sequela of chronic pancreatitis and at this could represent a pseudocyst related to prior pancreatitis. The differential diagnosis would also include pancreatic cyst, intraductal papillary mucinous neoplasm (IPMN), mucinous cystic neoplasm (MCN), and the less common serous cystadenoma and neuroendocrine tumor. Correlate for history of pancreatitis. Recommend 3 month follow-up pre and post contrast MRI. 2. Likely polycystic kidney disease with multiple bilateral renal cysts as well as multiple scattered hepatic cysts. Reviewed, dictated and finalized at location A. IMPRESSION: 1. No interval change in a 1.9 cm cystic lesion in the body the pancreas. There are few mildly prominent pancreatic ductal side branches which suggests sequel a of chronic pancreatitis and at this could represent a pseudocyst related to p rior pancreatitis. The differential diagnosis would also include pancreatic cys t, intraductal papillary mucinous neoplasm (IPMN), mucinous cystic neoplasm (MC N), and the less common serous cystadenoma and neuroendocrine tumor. Correlate for history of pancreatitis. Recommend 3 month follow-up pre and post contrast MRI. 2. Likely polycystic kidney disease with multiple bilateral renal cysts as well as multiple scattered hepatic cysts.
== END 2025-04-11 07:29 | disposition home or self-care (01) ==
PROVIDERS: PCP Internal Medicine; Visit Provider Internal Medicine
DX: K86.2 Cyst of pancreas (principal); K76.89 Other specified diseases of liver; N28.1 Cyst of kidney, acquired
CPT/HCPCS: 74183; 76376; A9577

== ENCOUNTER 2025-04-15 11:10 | Outpatient (CLI) | payer MEDICARE, SELFPAY ==
--- NOTE | 2025-04-15 | S_PTH ---
PATIENT: Maykel Milner LOC: [facility]#:[id number] AGE/SX: 80/M ROOM: RE04/15/[address]: Marilyn Stephenson MD : 1945 BED: DIS: 04/15/2025 SPEC #: [id number] RECD: 04/15/25 15:26 STATUS: RADHA REBravo #: [id number] YANNI: 04/15/25 00:[address]: Marilyn Stephenson DEPT: [facility] Surgical RECD BY: Melvi Feliz MLT, ([facility]) Tissues: A - Skin Bx Procedures: Hematoxylin and Eosin Stain Gross and Microscopic Level 4
[2025-04-16 07:09] LABS: CA 19-9 37 U/mL (0-35)
== END 2025-04-15 11:11 | disposition home or self-care (01) ==
LOC: CHSLAB 11:11
PROVIDERS: PCP Internal Medicine; Visit Provider Internal Medicine
DX: D37.8 Neoplasm of uncertain behavior of other specified digestive organs (principal); L82.1 Other seborrheic keratosis
CPT/HCPCS: 86301; 88305

== ENCOUNTER 2025-05-18 08:25 | Outpatient (CLI) | payer MEDICARE, SELFPAY ==
[2025-05-18 09:43] LABS: Anion Gap 8 mmol/L (4-12); Blood Urea Nitrogen 30 mg/dL (9-20); Calcium 9.2 mg/dL (8.4-10.2); Carbon Dioxide 30 mmol/L (22-30); Chloride 101 mmol/L (98-107); Estimated Glomerular Filt Rate 45; Glucose 92 mg/dL (65-110); Osmolality Calculated 294 mOsm/kg (285-295); Potassium 4.5 mmol/L (3.4-5.0); Sodium 139 mmol/L (137-145)
== END 2025-05-18 08:26 | disposition home or self-care (01) ==
LOC: CHSLAB 08:27
PROVIDERS: PCP Internal Medicine; Visit Provider Internal Medicine
DX: I10 Essential (primary) hypertension (principal)
CPT/HCPCS: 36415; 80048

== ENCOUNTER 2025-06-01 09:58 | Outpatient (CLI) | payer MEDICARE, SELFPAY ==
[2025-06-01 10:22] LABS: Add Urine Microscopic? NO; Appearance Urine Clear (Clear); Glucose Urine UA Negative (Negative); Leukocyte Esterase Ur Negative (Negative); Nitrate Urine Negative (Negative); Specific Grav Ur 1.020 (1.010-1.020)
[2025-06-01 10:35] LABS: Anion Gap 9 mmol/L (4-12); Blood Urea Nitrogen 30 mg/dL (9-20); Calcium 8.9 mg/dL (8.4-10.2); Carbon Dioxide 23 mmol/L (22-30); Chloride 107 mmol/L (98-107); Estimated Glomerular Filt Rate 52; Glucose 94 mg/dL (65-110); Osmolality Calculated 294 mOsm/kg (285-295); Potassium 4.2 mmol/L (3.4-5.0); Sodium 139 mmol/L (137-145)
== END 2025-06-01 09:59 | disposition home or self-care (01) ==
PROVIDERS: PCP Internal Medicine; Visit Provider Internal Medicine
DX: R79.89 Other specified abnormal findings of blood chemistry (principal)
CPT/HCPCS: 36415; 80048; 81003

== ENCOUNTER 2025-06-16 08:08 | Outpatient (CLI) | payer MEDICARE, SELFPAY ==
--- OUTSIDE RECORDS SUMMARY | 2025-06-16 08:15 | XMS_ITS | Clinical Summary ---
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 07/24/2023 Active NIFEdipine XL (PROCARDIA XL) 60 MG 24 hr tablet Take 1 tablet (60 mg total) by mouth daily. 90 tablet 3 11/07/2024 Active Active Problems Problem Noted Date Diagnosed Date Class 3 severe obesity due t o excess calories without serious comorbidity with body mass index (BMI) of 40.0 to 44.9 in adult 09/02/2024 SARAH (obstructive sleep apnea) 09/02/2024 Mixed hyperlipidemia 09/02/2024 Primary hypertension 09/02/2024 Family History Medical History Relation Comments Colon [...] Sign Reading Time Taken Comments Blood Pressure 150/65 12/03/2024 2:25 PM CDT Pulse 64 12/03/2024 2:25 PM CDT Temperature 36.5 C (97.7 F) 12/03/2024 2:25 PM CDT Respiratory Rate 16 12/03/2024 2:25 PM CDT Oxygen Saturation 99% 12/03/2024 2:25 PM CDT Inhaled Oxygen Concentration - - Weight 127 kg (280 lb) 11/25/2024 1:42 PM CDT Height 182.9 cm (6') 11/25/2024 1:42 PM CDT Body Mass Index 37.97 11/25/2024 1:42 PM CDT Plan of Treatment Upcoming Encounters Date Type Department Care Team (Late st Contact Info) Description 09/08/2025 12:30 PM CDT Office Visit [facility] [place] [phone] MD [address] [facility] [address] [place] [address] Health Maintenance Due Date Last Done Comments Pneumococcal Vaccine: 50+ Years (1 of 1 - PCV) 1994 Zoster Vaccines (1 of 2) 1994 Annual Medicare Wellness Visit 2009 DTaP, Tdap and Td Vaccines ( 1 - Tdap) 09/14/2011 09/13/2011 RSV Immunization or 60+ Years (1 - 1-dose 75+ series) 2019 COVID-19 Vaccine (2024-2 6 season) 2025 10/18/2020, 09/20/2020 Influenza Adult (#1) 2025 Hepatitis A Vaccines Aged Out No long er eligible based on patient's age to complete this topic Meningococcal B Vaccine Aged Out No l onger eligible based on patient's age to complete this topic Meningococcal Vaccine Aged Out No pippa judy eligible based on patient's age to complete this topic RSV Immunizations Under 20 Months Aged Out No longer eligible b ased on patient's age to complete this topic Medical Devices Implanted Type Area Desk Sergeant Device Identifier Shelf Expiration Date Model / Serial / Lot Iol Tecnis Toric [id number] - [id number] Implanted:Qty: 1 on 11/05/2024 by Keri Bender MD at [facility] Lens Left: Eye [employer] [id number] 06/20/2025 [id number] / [id number] / [id number] Iol [employer]ecnis Simplicity [id number] - [id number] Implanted:Qty: 1 on 12/03/2024 by Keri Bender MD at [facility] Lens Right: Eye [employer] [id number] 10/10/2027 [id number] / [id number] / Insurance MEDICARE CAD[employer] Care Teams Industrial Machine Assembler Relationship Specialty Start Date End Date Marilyn Stephenson MD [address] [place] [address] PCP - General INTERNAL MEDICINE 02/17/[address] MD [address] [facility] [address] [address] Physician INTERVENTIONAL CARDIOLOGY 08/22/24
[2025-06-16 09:19] LABS: Anion Gap 11 mmol/L (4-12); Blood Urea Nitrogen 27 mg/dL (9-20); Calcium 9.1 mg/dL (8.4-10.2); Carbon Dioxide 24 mmol/L (22-30); Chloride 105 mmol/L (98-107); Estimated Glomerular Filt Rate 50; Glucose 105 mg/dL (65-110); Osmolality Calculated 295 mOsm/kg (285-295); Potassium 4.3 mmol/L (3.4-5.0); Sodium 140 mmol/L (137-145)
== END 2025-06-16 08:09 | disposition home or self-care (01) ==
PROVIDERS: PCP Internal Medicine; Visit Provider Internal Medicine
DX: I10 Essential (primary) hypertension (principal)
CPT/HCPCS: 36415; 80048